=== PATIENT | female | born 1980 | race Asian ===

== ENCOUNTER 2016-11-19 09:47 | Inpatient (IN) | payer SELFPAY ==
[2016-11-17 17:52] LABS: BASOPHILS # (AUTO) 0.1 K/uL (0.0-0.2); BASOPHILS % (AUTO) 0.5 % (0.0-2.0); EOSINOPHILS % (AUTO) 0.2 % (0.0-4.0); HEMATOCRIT 38.8 % (36-48); HEMOGLOBIN 13.1 g/dL (12.0-16.0); LYMPHOCYTES # (AUTO) 1.4 K/uL (1.0-5.5); LYMPHOCYTES % (AUTO) 12.5 % (20.5-51.5); MEAN CORPUSCULAR HEMOGLOBIN 33 pg (27-31); MEAN CORPUSCULAR HGB CONC 34 % (32-36); MEAN CORPUSCULAR VOLUME 98 fL (79.0-98.0); MONOCYTES # (AUTO) 0.6 K/uL (0.0-1.0); MONOCYTES % (AUTO) 5.6 % (1.7-9.3); NEUTROPHILS # (AUTO) 8.8 K/uL (1.8-7.7); NEUTROPHILS % (AUTO) 81.2 % (40.0-70.0); PLATELET COUNT (AUTO) 192 K/uL (130-430); RED BLOOD CELL COUNT(AUTO) 3.97 MIL/uL (4.2-6.2); RED CELL DISTRIBUTION WIDTH 12.7 % (9.0-15.0); WHITE BLOOD COUNT (AUTO) 10.9 K/uL (4.8-10.8)
[~2016-11-19] VITALS: Ht 160 cm; Wt 55.3 kg
[2016-11-19] MEDS ORDERED: LR 1,000 ML IV ONE (10:23)
[2016-11-19] MEDS ORDERED: CITRIC ACID/SODIUM CITRATE 30 ML UDC PO ONE (10:30)
[2016-11-19] MEDS ORDERED: CEFAZOLIN 2 GM IVPB PREMIX 50 ML IV ONE (10:30)
[2016-11-19] MEDS ORDERED: LR 1,000 ML IV SCH ×2 (12:20→12:31)
[2016-11-19] MEDS ORDERED: OXYTOCIN/NORMAL SALINE 1,000 ML IV ONE ×2 (12:20→15:07)
[2016-11-19] MEDS ORDERED: TEMAZEPAM 15 MG CAPSULE PO PRN (12:30)
[2016-11-19] MEDS ORDERED: ANUSOL 1 EA SUPP.RECT (PREPARATION H) RC PRN (12:30)
[2016-11-19] MEDS ORDERED: RHO(D) IMMUNE GLOBULIN/MALTOSE 1500 UNITS/1.3 ML (WINHRO) IM PRN (12:30)
[2016-11-19] MEDS ORDERED: DOCUSATE SODIUM 100 MG CAPSULE PO PRN (12:30)
[2016-11-19] MEDS ORDERED: SIMETHICONE 80 MG TAB.CHEW PO PRN (12:30)
[2016-11-19] MEDS ORDERED: LANOLIN 7 GM OINT. TP PRN (12:30)
[2016-11-19] MEDS ORDERED: SENNOSIDES/DOCUSATE SODIUM 1 TAB TABLET(SENOKOT-S) PO PRN (12:30)
[2016-11-19] MEDS ORDERED: MEASLES,MUMPS&RUBELLA VACC/PF 12500 UNIT/0.5 ML VIAL SUBQ PRN (12:30)
[2016-11-19] MEDS ORDERED: BISACODYL 10 MG/SUPPOSITORY RC PRN (12:30)
[2016-11-19] MEDS ORDERED: ACETAMINOPHEN 325 MG TABLET PO PRN (12:30)
[2016-11-19] MEDS ORDERED: HYDROcodone/ACETAMIN 5-325 MG TAB (NORCO/ VICODIN) PO PRN ×2 (12:30)
[2016-11-19] MEDS ORDERED: HYDROmorphone 1 MG INJ. 1 MG/ML AMPUL IVP PRN (12:45)
[2016-11-19] MEDS ORDERED: ONDANSETRON HCL 4 MG/2 ML VIAL IVP PRN (12:45)
[2016-11-19] MEDS ORDERED: MEPERIDINE HCL/PF 25 MG/ML DISP.SYRIN IVP PRN ×2 (12:45)
[2016-11-19] MEDS ORDERED: HYDROmorphone 2 MG/ML VIAL IVP PRN ×2 (12:45)
[2016-11-19] MEDS ORDERED: DEXAMETHASONE SOD PHOSPHATE 4 MG/ML VIAL IVP ONE (13:01)
[2016-11-19] MEDS ORDERED: BUPIVACAINE /DEX PF 0.75% SPINAL 2 ML AMP INJ ONE (13:01)
[2016-11-19] MEDS ORDERED: OXYTOCIN 10 UNIT/ML VIAL IV ONE (13:01)
[2016-11-19] MEDS ORDERED: NS 1000 ML BAG IV ONE (13:01)
[2016-11-19] MEDS ORDERED: LR 1,000 ML IV.SOLN IV ONE (13:01)
[2016-11-19] MEDS ORDERED: MORPHINE SULFATE 10MG/10ML PF AMP EP ONE (13:01)
[2016-11-19] MEDS ORDERED: METHYLERGONOVINE MALEATE 0.2 MG/ML AMP IM ONE (13:01)
[2016-11-19 20:18] VITALS: BP_SYST 119
[2016-11-19] MEDS: IBUPROFEN 600 MG TABLET PO SCH (20:22)
[2016-11-20] MEDS: IBUPROFEN 600 MG TABLET PO SCH ×4 (00:16→18:26)
[2016-11-20 07:01] LABS: BASOPHILS % (AUTO) 0.1 % (0.0-2.0); HEMATOCRIT 32.6 % (36-48); HEMOGLOBIN 11.1 g/dL (12.0-16.0); LYMPHOCYTES % (AUTO) 7.3 % (20.5-51.5); MEAN CORPUSCULAR HEMOGLOBIN 34 pg (27-31); MEAN CORPUSCULAR HGB CONC 34 % (32-36); MEAN CORPUSCULAR VOLUME 98 fL (79.0-98.0); MONOCYTES # (AUTO) 0.6 K/uL (0.0-1.0); MONOCYTES % (AUTO) 4.5 % (1.7-9.3); NEUTROPHILS # (AUTO) 11.9 K/uL (1.8-7.7); NEUTROPHILS % (AUTO) 88.1 % (40.0-70.0); PLATELET COUNT (AUTO) 138 K/uL (130-430); RED BLOOD CELL COUNT(AUTO) 3.31 MIL/uL (4.2-6.2); RED CELL DISTRIBUTION WIDTH 12.7 % (9.0-15.0); WHITE BLOOD COUNT (AUTO) 13.5 K/uL (4.8-10.8)
[2016-11-21] MEDS: IBUPROFEN 600 MG TABLET PO SCH ×5 (00:07→23:37)
[2016-11-21] MEDS ORDERED: MILK OF MAGNESIA 30 ML UDC PO PRN (10:30)
[2016-11-21] MEDS ORDERED: DIPH-TET-PERTUS Vaccine 0.5 ML VIAL (ADACEL) I.M. ONE (20:15)
[2016-11-22] MEDS: IBUPROFEN 600 MG TABLET PO SCH ×3 (06:03→17:34)
[2016-11-22] MEDS ORDERED: DIPH-TET-PERTUS Vaccine 0.5 ML VIAL (ADACEL) I.M. ONE (14:30)
== END 2016-11-22 20:01 | disposition home or self-care (01) | DRG 766 ==
LOC: SPU 09:47 → UNDOADMIN 09:47 → SPU 09:57
PROVIDERS: ADMIT Obstetrics & Gynecology; ATTEND Obstetrics & Gynecology
PROC: 0UB70ZZ Excision of Bilateral Fallopian Tubes, Open Approach (ICD-10-PCS; 2016-11-19)
PROC: 3E0234Z Introduction of Serum, Toxoid and Vaccine into Muscle, Percutaneous Approach (ICD-10-PCS; 2016-11-19)
PROC: 10D00Z1 Extraction of Products of Conception, Low, Open Approach (ICD-10-PCS; principal; 2016-11-19 12:00)
DX: O34.211 Maternal care for low transverse scar from previous cesarean delivery (principal); Z3A.39 39 weeks gestation of pregnancy; Z37.0 Single live birth; Z30.2 Encounter for sterilization; Z23 Encounter for immunization; O09.523 Supervision of elderly multigravida, third trimester
CPT/HCPCS: 36415; 85025; 86886; 86900; 86901; 88302; 90715; 94760; J0690; J1100; J2210; J2274; J2590; J3490; J7030; J7120